=== PATIENT | female | born 1970 | race Caucasian/White ===

== ENCOUNTER 2021-11-27 09:11 | Outpatient (CLI) | payer OTHER, SELFPAY ==
--- NOTE | 2021-11-27 11:21 | W.ANESCHARGE ---
Anesthesia Charges Start Date/Time Anesthesia Start Date: 11/27/21 Anesthesia Start Time: 09:50 Stop Date/Time Anesthesia Stop Date: 11/27/21 Anesthesia Stop Time: 10:20 Summary Emergency: No
--- NOTE | 2021-11-27 11:58 | W.ANESCHARGE ---
Anesthesia Charges Start Date/Time Anesthesia Start Date: 11/27/21 Anesthesia Start Time: 09:50 Stop Date/Time Anesthesia Stop Date: 11/27/21 Anesthesia Stop Time: 10:20 Summary Emergency: No
== END 2021-11-27 09:12 | disposition home or self-care (01) ==
PROVIDERS: PCP Physician Assistant Medical; Visit Provider Internal Medicine
DX: Z12.11 Encounter for screening for malignant neoplasm of colon (principal); K63.5 Polyp of colon; K57.30 Diverticulosis of large intestine without perforation or abscess without bleeding
CPT/HCPCS: 00811; 45380; 88305; J2704

== ENCOUNTER 2021-12-10 15:37 | Outpatient (CLI) | payer OTHER, SELFPAY ==
--- NOTE | 2021-12-10 15:40 | CRLHL7_ITS ---
For Patients: As a result of the Century Cures Act, medical imaging exams and procedure reports are released immediately into your electronic medical record. You may view this report before your referring provider. If you have questions, please contact your health care provider. BILATERAL SCREENING MAMMOGRAM WITH COMPUTER-AIDED DETECTION AND TOMOSYNTHESIS TECHNIQUE: CC and MLO views were obtained. These mammographic images have been obtained using full-field digital technique. These mammographic images were interpreted with the benefit of computer-aided detection. Breast Tomosynthesis was used in this interpretation. COMPARISON FILM: 08/19/20, 11/07/17, 08/20/16. FINDINGS: There are scattered areas of fibroglandular density IMPRESSION: There is no radiographic evidence for malignancy. ASSESSMENT: BI-RADS Category 1: Negative RECOMMENDATION: Routine screening mammogram in 1 year. A lay language report of this examination will be provided to the patient. Khoa Franco M.D. Diagnostic Radiologist [email or web address] VERNA/Dictated by: Khoa Franco MD @ 12/11/2021 9:05:00 AM (Electronically Signed)
--- NOTE | 2021-12-10 16:00 | CRLHL7_ITS ---
For Patients: As a result of the Century Cures Act, medical imaging exams and procedure reports are released immediately into your electronic medical record. You may view this report before your referring provider. If you have questions, please contact your health care provider. INDICATION: Mobic fullness and bloating TECHNIQUE: Ultrasound pelvis transabdominal and transvaginal for better assessment or to better visualize the endometrium. Real time sonographic images with Spectral and color Doppler imaging of the ovaries were obtained. COMPARISON: None FINDINGS: Uterus: History of hysterectomy. Right ovary: 1.6 centimeter x 0.8 centimeter x 1.4 centimeter. No ovarian or adnexal masses. Normal arterial and venous blood flow. Left ovary: Not visualized. Cul-de-sac: No significant free fluid. IMPRESSION: History of hysterectomy. Normal right ovary. The left ovary is not visualized. Dictated by Khoa Campoverde MD @ 12/10/2021 7:13:38 PM (Electronically Signed)
== END 2021-12-10 15:38 | disposition home or self-care (01) ==
LOC: MAMMO 15:37
PROVIDERS: PCP Physician Assistant Medical; Visit Provider Physician Assistant Medical
DX: Z12.31 Encounter for screening mammogram for malignant neoplasm of breast (principal); R14.0 Abdominal distension (gaseous)
CPT/HCPCS: 76830; 76856; 77063; 77067

== ENCOUNTER 2022-01-27 17:05 | Outpatient (CLI) | payer OTHER, SELFPAY ==
[2022-01-27 22:28] LABS: NT Pro B Type NatriureticPept* 63 PG/mL (0-125)
== END 2022-01-27 17:06 | disposition home or self-care (01) ==
LOC: LKVREF 17:06
PROVIDERS: PCP Physician Assistant Medical; Visit Provider Physician Assistant Medical
DX: R00.2 Palpitations (principal)
CPT/HCPCS: 83880

== ENCOUNTER 2022-01-28 16:59 | Outpatient (CLI) | payer OTHER, SELFPAY ==
[2022-01-28 15:26] LABS: Magnesium* 1.9 mg/dL (1.5-2.6)
[2022-01-31 14:51] LABS: Estradiol by TMS 369.4 pg/mL
[2022-02-03 07:28] LABS: Sex Hormone Binding Globulin 71 nmol/L (25-122); Testosterone Bioavailable 13.4 ng/dL (2.8-16.5); Testosterone, Free LC-MS/MS 4.8 pg/mL (1.1-5.8); Testosterone, LC-MS/MS 47 ng/dL (9-55)
== END 2022-01-28 17:00 | disposition home or self-care (01) ==
PROVIDERS: PCP Physician Assistant Medical; Visit Provider Physician Assistant Medical
DX: R00.2 Palpitations (principal); E66.9 Obesity, unspecified; F41.9 Anxiety disorder, unspecified
CPT/HCPCS: 82533; 82670; 83001; 83735; 84144; 84270; 84402; 84403; 84443

== ENCOUNTER 2022-06-23 14:55 | Outpatient (CLI) | payer OTHER, SELFPAY | END 2022-06-23 14:56 | disposition home or self-care (01) | PROVIDERS: PCP Physician Assistant Medical; Visit Provider Student in an Organized Health Care Education/Training Program | DX: R19.7 Diarrhea, unspecified (principal) | CPT/HCPCS: 80076; 83690; 87505 ==

== ENCOUNTER 2022-08-18 16:11 | Outpatient (CLI) | payer OTHER, SELFPAY | END 2022-08-18 16:12 | disposition home or self-care (01) | LOC: NFLDREF 16:12 | PROVIDERS: PCP Physician Assistant Medical; Visit Provider Physician Assistant Medical | DX: A04.72 Enterocolitis due to Clostridium difficile, not specified as recurrent (principal) | CPT/HCPCS: 87338; 87493 ==

== ENCOUNTER 2022-12-31 08:09 | Outpatient (CLI) | payer OTHER, SELFPAY | END 2022-12-31 08:10 | disposition home or self-care (01) | LOC: NFLDREF 01-04 23:07 | PROVIDERS: PCP Physician Assistant Medical; Referring Provider Physician Assistant Medical; Visit Provider Physician Assistant Medical | DX: Z00.00 Encounter for general adult medical examination without abnormal findings (principal); R53.83 Other fatigue; E66.9 Obesity, unspecified; Z13.6 Encounter for screening for cardiovascular disorders; Z13.29 Encounter for screening for other suspected endocrine disorder | CPT/HCPCS: 80053; 80061; 84443 ==

== ENCOUNTER 2023-01-03 09:05 | Outpatient (CLI) | payer OTHER, SELFPAY | END 2023-01-03 09:06 | disposition home or self-care (01) | PROVIDERS: PCP Physician Assistant Medical; Visit Provider Physician Assistant Medical | DX: Z00.00 Encounter for general adult medical examination without abnormal findings (principal); R53.83 Other fatigue; E66.9 Obesity, unspecified | CPT/HCPCS: 82306; 85651; 86140; 86618 ==

== ENCOUNTER 2023-04-11 08:10 | Outpatient (CLI) | payer OTHER, SELFPAY ==
--- NOTE | 2023-04-11 08:15 | MM_ITS ---
Patient: LAURE VOGEL Facility:?[facility] Patient ID:?[id number] Site Patient ID:?[id number]. Site :?1970 Study:?XRay-Breast Bilateral 3D W/CAD-04/11/2023 8:34:28 AM Ordering Physician:Billy Final Report: BILATERAL SCREENING MAMMOGRAM WITH COMPUTER-AIDED DETECTION AND TOMOSYNTHESIS TECHNIQUE: CC and MLO views were obtained. These mammographic images have been obtained using full-field digital technique. These mammographic images were interpreted with the benefit of computer-aided detection. Breast Tomosynthesis was used in this interpretation. COMPARISON FILM: 12/10/21, 08/19/20, 11/07/17. FINDINGS: There are scattered areas of fibroglandular density. IMPRESSION: There is no radiographic evidence for malignancy. ASSESSMENT: BI-RADS Category 2: Benign RECOMMENDATION: Routine screening mammogram in 1 year. A lay language report of this examination will be provided to the patient. Jorge L Bravo M.D. Diagnostic/Nuclear Medicine Radiologist [email or web address] LUCIAN/ed R& Transcribed: 1:41 pm SP/Dictated by: Jorge L Bravo MD @ 04/14/2023 10:44:00 AM Signed by:Michael Bravo MD @04/14/2023 1:48:03 PM (Electronic Signature)
== END 2023-04-11 08:11 | disposition home or self-care (01) ==
LOC: MAMMO 08:11
PROVIDERS: PCP Physician Assistant Medical; Visit Provider Physician Assistant Medical
DX: Z12.31 Encounter for screening mammogram for malignant neoplasm of breast (principal)
CPT/HCPCS: 77063; 77067

== ENCOUNTER 2023-12-02 08:18 | Outpatient (CLI) | payer OTHER, SELFPAY | END 2023-12-02 08:19 | disposition home or self-care (01) | PROVIDERS: PCP Physician Assistant Medical; Referring Provider Physician Assistant Medical; Visit Provider Physician Assistant Medical | DX: E78.5 Hyperlipidemia, unspecified (principal); Z13.29 Encounter for screening for other suspected endocrine disorder | CPT/HCPCS: 80053; 80061; 84443 ==

== ENCOUNTER 2023-12-19 10:30 | Outpatient (CLI) | payer OTHER, SELFPAY ==
--- NOTE | 2023-12-19 10:45 | CRLHL7_ITS ---
For Patients: As a result of the Century Cures Act, medical imaging exams and procedure reports are released immediately into your electronic medical record. You may view this report before your referring provider. If you have questions, please contact your health care provider. CLINICAL HISTORY: Urinary incontinence TECHNIQUE: 2D fall scale and color Doppler images were acquired of the pelvis using a transvaginal approach. FINDINGS: The uterus is absent. The ovaries are not visualized. There are no suspicious fluid collections within the cul-de-sac. IMPRESSION: Status post hysterectomy. Nonvisualization of the ovaries. Dictated by Khoa Franco MD @ 12/19/2023 12:28:43 PM (Electronically Signed)
--- NOTE | 2023-12-19 11:30 | CRLHL7_ITS ---
For Patients: As a result of the Century Cures Act, medical imaging exams and procedure reports are released immediately into your electronic medical record. You may view this report before your referring provider. If you have questions, please contact your health care provider. CLINICAL HISTORY: urinary incontinence COMPARISON: none TECHNIQUE: Bowens scale and color Doppler images were acquired of the kidneys and urinary bladder. FINDINGS: Sonographic images reveal a symmetric appearance of the kidneys. There is no evidence of hydronephrosis, mass or calculus. The right kidney measures 9.5cm in length and the left kidney measures 10.6cm in length. The renal cortex appears of normal thickness. Prevoid bladder volume 91 cc. Postvoid bladder volume 20 cc. Bladder wall measures 4 millimeters. Color Doppler images reveal a normal appearance of both ureteral jets. There is no evidence of bladder calculi or diverticula. IMPRESSION: Normal renal ultrasound. Mild postvoid residual bladder volume. Mild bladder wall thickening. Dictated by Khoa Franco MD @ 12/19/2023 12:24:16 PM (Electronically Signed)
== END 2023-12-19 10:31 | disposition home or self-care (01) ==
LOC: US 10:30
PROVIDERS: PCP Physician Assistant Medical; Visit Provider Physician Assistant Medical
DX: R32 Unspecified urinary incontinence (principal)
CPT/HCPCS: 76770; 76830

== ENCOUNTER 2024-07-09 12:08 | Emergency (ER) | payer OTHER, SELFPAY ==
--- OUTSIDE RECORDS SUMMARY | 2024-07-09 12:11 | XMS_ITS | Clinical Summary ---
Author Organization [facility] Address [address] [place] [address] Care Team Providers Care Otr Company Driver Name Role Phone Unassigned, Provider Primary Care Provider Unava ilable Source Comments You are receiving this document as you are listed as the primary care provider,follow-up provider, or the patient has been referred to you for consultation.This is in compliance with the Medicare and[facility] Cent[facility] EHR Incentive Program,which states Providers who transition their patient to another setting of careor provider of care or refers their patient to another provider of care shouldprovide summary care record for each transition of care or referral. [facility] Allergies Active Allergy Reactions Criticality Noted Date Comments Cefdinir Rash 03/25/2022 Medications metoprolol tartrate (LOPRESSOR) 25 MG tablet Take 1 Tablet (25 mg) by mouth two times a day. Active fluticasone propionate (FLONASE) 50 MCG/ACT nasal solutionIndicat ions:Dizziness, Facial pressure Place 2 Sprays into both nostrils daily. 16 g 11 05/13/2021 Active azelastine (ASTELIN) 0.1 % nasal solutionIndicat ions:Dizziness, Facial pressure Place 1 [place] into both nostrils two times a day. 30 mL 11 05/13/2021 Active Active Problems No known active problems Encounters Date Type Department Care Team Description 07/07/2024 conrado Lozoya [address] [place] [address] from Last 3 Months Social History Tobacco Use Types Packs/Day Years Used Date Smoking Tobacco: Former Cigarettes Q uit: 2017 Comments No Sex and Gender Information Value Date Recorded Sex Assigned at Not on file Legal Sex Female 4:48 AM CDT Gender Identity Not on file Sexual Orientation Not on file Last Filed Vital Signs Vital Sign Reading Time Taken Comments Blood Pressure 121/75 03/25/2022 8:13 AM CONTENT PUBLISHER Pulse 75 03/25/2022 8:13 AM CONTENT PUBLISHER Temperature 36.9 C (98.5 F) 03/25/2022 8:13 AM CONTENT PUBLISHER Respiratory Rate 16 03/25/2022 8:13 AM CONTENT PUBLISHER Oxygen Saturation 99% 03/25/2022 8:13 AM CONTENT PUBLISHER Inhaled Oxygen Concentration - - Weight - - Height - - Body Mass Index - - Plan of Treatment Upcoming Encounters Date Type Department Care Team (Late st Contact Info) Description 01/22/2025 1:30 PM CONTENT PUBLISHER Appointment [facility] [address] [place] [address] Demar Chadwick MD [address] [place] [address] Health Maintenance Due Date Last Done Comments Cervical Cancer Screening Due 1972 Colon Cancer Screening Plan Due 1972 Hep C Screening (Preventive Services) 1972 Mammogram 1972 HIV Screening (Preventive Services) 1988 Adult Preventive Visit 1990 HepB Vaccine (1) 11/09/1991 Cholesterol 2017 Pneumococcal Vaccine 50+ Yrs (1 of 1 - PCV) 2022 Zoster/Shingles Vaccine (1 of 2) 2022 COVID-19 Vaccine (3 - season) 2023 07/04/2020, 06/10/2020 Influenza Vaccine (Season Ended) 2024 01/09/2020, 12/15/2016, 01/20/2016, Additional history exists DTaP/Tdap/Td Vaccine (2 - Tdap) 10/28/2027 10/27/2017, 01/08/2003 HepA Vaccine Aged Out No longer eligi ble based on patient's age to complete this topic Hib Vaccine Aged Out No longer eligi ble based on patient's age to complete this topic IPV (Polio) Vaccine Aged Out No longe r eligible based on patient's age to complete this topic MCV4 Vaccine Aged Out No longer eligi ble based on patient's age to complete this topic Meningococcal B Vaccine Aged Out No l onger eligible based on patient's age to complete this topic Insurance [facility] Care Teams Otr Company Driver Relationship Specialty Start Date End Date Unassigned, Provider [address] [place] [address] PCP - General 01/25/00
--- OUTSIDE RECORDS SUMMARY | 2024-07-09 12:11 | XMS_ITS | Clinical Summary ---
Author Organization [facility] Address [address] [place] [address] Care Team Providers Care Water Plant Pump Operator Supervisor Name Role Phone Ip, Andrew Archer MD Unavailable [phone] Moni Allen MD Unavailable + Rosangela Troy PA-C Primary Care Provider Allergies Active Allergy Reactions Criticality Noted Date Comments Cefdinir Rash Low 01/25/2022 Medications acetaminophen (TYLENOL) 500 MG tablet Active ibuprofen (ADVIL/MOTRIN) 200 MG tablet Active metoprolol tartrate (LOPRESSOR) 25 MG tablet Take 12.5 mg by mouth daily Active flecainide (TAMBOCOR) 50 MG tabletIndicatio ns:Palpitations Take 1 tablet (50 mg) by mouth 2 times daily 60 tablet 3 Active Additional Information Patient not taking.Reported on 04/06/2022 Family History Medical History Relation Comments Hypertension Brother Coronary Stenting Father Heart Failure Father Myocardial Infarction Father Relation Status Comments Brother Father Social History Tobacco Use Types Packs/Day Years Used Date Smoking Tobacco: Former Cigarettes 1.5 30 0 06/21/1986 - 06/21/2016 Smokeless Tobacco: Never Tobacco Cessation:Counseling Given: Not Answered Alcohol Use Standard Drinks/Week Comments Yes 0 (1 standard drink = 0.6 oz pur e alcohol) Socially Adolescent Education Answer Date Record ed Getting School Help Needed Not on file 12/07 Comments Unknown Sex and Gender Information Value Date Recorded Sex Assigned at Not on file Legal Sex Female 4:25 AM DITCHER OPERATOR Gender Identity Not on file Sexual Orientation Not on file Last Filed Vital Signs Vital Sign Reading Time Taken Comments Blood Pressure 130/90 04/06/2022 3:15 PM DITCHER OPERATOR Pulse 89 04/06/2022 3:15 PM DITCHER OPERATOR Temperature - - Respiratory Rate - - Oxygen Saturation 99% 04/06/2022 3:15 PM DITCHER OPERATOR Inhaled Oxygen Concentration - - Weight 95.3 kg (210 lb) 04/06/2022 3:15 PM DITCHER OPERATOR Height 162.6 cm (5' 4) 04/06/2022 3:15 PM DITCHER OPERATOR Body Mass Index 36.05 04/06/2022 3:15 PM DITCHER OPERATOR Plan of Treatment Health Maintenance Due Date Last Done Comments ADVANCE CARE PLANNING 1972 ANNUAL REVIEW OF HM ORDERS 1972 CT COLONOGRAPHY 1972 DIABETES SCREENING 1972 FIT 1972 FLEX SIG 1972 MAMMO SCREENING 1972 sDNA (Cologuard) 1972 YEARLY PREVENTIVE VISIT 11/09/1975 COLONOSCOPY 1982 COLORECTAL CANCER SCREENING 1982 HIV SCREENING 11/09/1987 HEPATITIS C SCREENING 1990 HEPATITIS B IMMUNIZATION (1 of 3 - 19+ 3-dose series) 11/09/1991 PAP 1993 LIPID 2012 LUNG CANCER SCREENING 2022 Pneumococcal Vaccine: 50+ Years (1 of 1 - PCV) 2022 ZOSTER IMMUNIZATION (1 of 2) 2022 COVID-19 Vaccine (3 - season) 2023 07/04/2020, 06/10/2020 PHQ-2 (once per calendar year) 2024 INFLUENZA VACCINE (Season Ended) 2024 01/09/2020, 12/15/2016, 01/20/2016, Additional history exists DTAP/TDAP/TD IMMUNIZATION (2 - Td or Tdap) 10/28/2027 10/27/2017, 01/08/2003 HPV IMMUNIZATION Aged Out No longer e ligible based on patient's age to complete this topic MENINGITIS IMMUNIZATION Aged Out No l onger eligible based on patient's age to complete this topic Insurance [employer] [address] [place] [id number] [employer] Care Teams Water Plant Pump Operator Supervisor Relationship Specialty Start Date End Date Rosangela Troy PA-C [facility] [address] [place] [address] PCP - General Physician Concrete Saw Operator 04/06/22 Andrew Luu MD [address] [place] [address] Cardiovascular Disease 01/21/22 Moni Allen MD [address] [place] [address] Cardiovascular Disease 02/25/22
--- OUTSIDE RECORDS SUMMARY | 2024-07-09 12:11 | XMS_ITS | Encounter Summary ---
Author Organization [facility] Address [address] [place] [address] Care Team Providers Care Travel Specialist Name Role Phone Unassigned, Provider Primary Care Provider Unava ilable Encounter Details Date Type Department Care Team (Late st Contact Info) Description 07/07/2024 Fabiana [address] [place] [address] Social History Tobacco Use Types Packs/Day Years Used Date Smoking Tobacco: Former Cigarettes Q uit: 2017 Comments No Sex and Gender Information Value Date Recorded Sex Assigned at Not on file Legal Sex Female 4:48 AM CDT Gender Identity Not on file Sexual Orientation Not on file documented as of this encounter Progress Notes * FAMILY MEDICINEWOOD PROVIDER - 07/07/2024 9:54 AM CDT [facility] Treatment Plan Diagnosis Urinary Tract Infection Visit Date July 07, 2024 Marcelina Hernandez Date of : 74 Provider Barb Wallace, Nurse Practitioner Note From Provider Conrad Hewitt, thank you for choosing [facility]! I?? sorry to hear that you're having symptoms of a bladder infection.'ve sent a prescription for an antibiotic to your pharmacy. Take the medication with a full meal twice a day and remember to drink lots of fluids. We are here for you for any questions or concerns along the way, just submit a Follow Up Request. Feel better soon! NICOLE Day Treatment Plan Because you have a bacterial infection, I sent a prescription for an antibiotic to [id number]. I also listed a few ways to soothe your discomfort and additional self-care tips to get you on the road to feeling better. If your symptoms don't start to improve after 3 days, or if you have questions, please select Help to Request a Follow-up and we'll discuss next steps. Order(s) nitrofurantoin monohyd/m-cryst 100 mg capsule Take 1 capsule by mouth every twelve hours as directed for 5 days Note: Take with food to improve absorption. Refills: None Sent To: [facility] [address] [place] [address] Treatment Plan Self Care Tip Topics Drink Water Avoid Caffeine Warm Packs What to Expect If you follow the recommendations I made on the Treatment tab, your symptoms should start to improve in about 3 days. If your symptoms don't start to improve after 3 days, or if you have questions, please select Help to Request a Follow- up and we'll help determine next steps. What to Watch Out For Follow-up in clinic if you experience: ??? Fever higher than 99.9 degrees ??? Shaking or chills ??? Vomiting ??? Severe pain in your back, abdomen or pelvis ??? Extreme fatigue My Conditions, Orders, Allergies as of July 07, 2024 Standard condition list Heart palpitations Current orders nitrofurantoin monohyd/m-cryst (nitrofurantoin monohyd/m-cryst) metoprolol tartrate (metoprolol tartrate) Allergies cefdinir (cefdinir), oral [employer] Education Information [facility] We are an online clinic open 13/09. If you have any questions or comments about this visit, please call or email [email or web address] documented in this encounter Plan of Treatment Upcoming Encounters Date Type Department Care Team (Late st Contact Info) Description 01/22/2025 1:30 PM VECTOR CONTROL ASSISTANT Appointment [facility] [address] [place] [address] Demar Chdawick MD [facility] [place] [address] documented as of this encounter Visit Diagnoses Diagnosis Urinary tract infection, site not specified documented in this encounter Care Teams Travel Specialist Relationship Specialty Start Date End Date Unassigned, Provider [address] [place] [address] PCP - General 01/25/00 documented as of this encounter
--- OUTSIDE RECORDS SUMMARY | 2024-07-09 12:11 | XMS_ITS | Clinical Summary ---
Author Organization [facility] Address [address] [place] [address] Care Team Providers Care Office Lead Name Role Phone Rosangela Troy PA-C Primary Care Provider Allergies No known active allergies Medications ADVIL 200 MG TAB take 1 tablet (200 mg) by oral route every 6 hours as needed with food 0 0 Active TYLENOL EXTRA STRENGTH 500 MG TAB take 2 tablets (1,000 mg) by oral route every 6 hours as needed 0 0 Active metoprolol (LOPRESSOR) 25 mg tablet TAKE 1/2 TABLET TWICE DAILY 45 tablet 0 02/20/2011 Active metoprolol (LOPRESSOR) 25 mg tablet TAKE 1/2 TABLET TWICE DAILY 45 tablet 0 02/20/2011 Active Active Problems Problem Noted Date Diagnosed Date Palpitations Tobacco use disorder Shortness of breath Lightheadedness Chest discomfort Family history of ischemic heart disease Immunizations Immunization Administration Dates Next Due Influenza, IIV3 (Age >=3 years) 1972 Td (Age >=7 Years) 01/08/2003 01/08/2003 Family History Medical History Relation Name Comments Hypertension Brother Heart Disease Father CABG, HTN, hyp erlipidemia Stroke Maternal Aunt Cancer-colon Maternal Grandfather Skin CA also Arthritis Maternal Grandmother Diabetes Mother hyperlipidemia also Heart Disease Paternal Grandfather Thyroid Disease Sister Relation Name Status Comments Brother Father Maternal Aunt Maternal Grandfather Maternal Grandmother Mother Paternal Grandfather Sister Social History Tobacco Use Types Packs/Day Years Used Date Smoking Tobacco: Every Day Cigarettes 0.5 20 Smokeless Tobacco: Never Alcohol Use Standard Drinks/Week Comments Yes 0 (1 standard drink = 0.6 oz pur e alcohol) Occasional Social Connections Answer Date Recorded Frequency of Communication with Friends and Fami ly Not on file 04/17/2021 Financial Resource Strain Answer Date R ecorded Difficulty of Paying Living Expenses Not on file 04/17/2021 Difficulty of Paying Living Expenses Not on file 04/17/2021 Comments No Sex and Gender Information Value Date Recorded Sex Assigned at Not on file Legal Sex Female 7:36 AM STUMPER FELLER Gender Identity Not on file Sexual Orientation Not on file Obstetrics History Last Filed Vital Signs Vital Sign Reading Time Taken Comments Blood Pressure 98/72 02/02/2011 2:05 PM STUMPER FELLER Pulse 78 02/02/2011 2:05 PM STUMPER FELLER Temperature 37.2 C (99 F) 11/25/2010 3:15 PM CDT Respiratory Rate - - Oxygen Saturation - - Inhaled Oxygen Concentration - - Weight 79.4 kg (175 lb 1.6 oz) 02/02/2011 2:05 P M STUMPER FELLER Height 161.9 cm (5' 3.75) 02/02/2011 2:05 PM CS T Body Mass Index 30.29 02/02/2011 2:05 PM STUMPER FELLER Plan of Treatment Health Maintenance Due Date Last Done Comments Tdap 11/09/1983 Depression screening for age 12+ 1984 HIV for age 15-65 11/09/1987 BMI (ht and wt on same day) for age 18+ 1990 Hepatitis C screening for age 18-79 1990 Pap test for age 21-65 1993 Tetanus booster 01/08/2013 01/08/2003 Colonoscopy through age 75 2017 Lipids for age 45-75 2017 Mammogram for age 45-75 2017 Pneumococcal series for age 50+ (1 of 1 - PCV) 2022 Zoster (shingles) series for age 50+ (1 of 2) 2022 COVID-19 vaccine series (3 - season) 2023 07/04/2020, 06/10/2020 Influenza Vaccine (Season Ended) 2024 11/08/18 75 Insurance [employer] [place] [id number] Care Teams Office Lead Relationship Specialty Start Date End Date Rosangela Troy PA-C [address] [place], [place] [id number] PCP - General Emergency Medicine 04/09/21
--- NOTE | 2024-07-09 12:24 | ED_ITS ---
HPI - General Adult General Time Seen by Provider: 12:24 Date Seen: 07/09/24 Chief complaint: Abdominal Pain Stated complaint: abdominal pain for a few days Time Seen by Provider: 07/09/24 12:24 Source: patient and RN notes reviewed Mode of arrival: ambulatory Limitations: no limitations History of Present Illness HPI narrative: Marcelina is a very pleasant 53-year-old female with a history of hysterectomy, palpations anxiety and diverticulosis who comes to the emergency room with left lower quadrant pain. Patient notes that on July 05 she started expe riencing pain in her left lateral abdomen that she usually associates with constipation. Chronically she has been using MiraLax on Mondays and Fridays because of constipation but recently she has had to take care of her mom and was not doing that. She notes that she did use MiraLax that day but did not have a bowel movement. That evening the pain began to descend into her left lower quadrant. On Tuesday morning the she still had not had a bowel movement and thus did take more MiraLax. She started noticing that it would hurt if she would move or stretch that area of her abdomen. On TuesdayJuly 07 she started having increased urination and increased pain in the left lower quadrant and did a virtual visit at which time she was prescribed Macrobid for possible UTI. She notes that that evening she did not sleep well felt very bloated. She does think she is passing gas but continues to have increased pain especially with movement. She notes that today seems to be a little bit better. She has had no fever or vomiting but has had some nausea and chills. Today she has actually had some diarrhea presumably secondary to the MiraLax use. Related Data Home Medications ?Medication ?Instructions ?Recorded ?Confirmed nitrofurantoin 1 cap PO Q12H 07/09/24 07/09/24 monohydrate/macrocrystals 100 mg capsule Previous Rx's ?Medication ?Instructions ?Recorded metoprolol tartrate 25 mg tablet 12.5 - 25 mg (0.5 - 1 x 25 mg) PO 12/08/23 BID #180 tabs alprazolam 0.5 mg tablet See Rx Instructions PO .ud PRN 03/28/24 anxiety #20 tabs alprazolam 0.25 mg tablet 0.25 mg PO TID PRN anxiety #30 tabs 04/25/24 Allergies Allergy/AdvReac Type Severity Reaction Status Date / Time cefdinir Allergy Mild Rash Verified 07/09/24 13:59 Review of Systems Status of ROS: Reports: 6 or more systems reviewed and unremarkable except as noted in History and below Const: Reports: chills and fatigue; Denies: fever ENMT: Denies: nasal congestion Cardio: Denies: chest pain, palpitations, swelling of feet/ankles or shortness of breath with exertion Resp: Denies: shortness of breath or cough GI: Reports: abdominal pain, nausea and diarrhea; Denies: vomiting : Reports: painful urination and urinary frequency Musculo: Denies: back pain Endo: Reports: fatigue PFSH PFSH Medical History C. difficile colitis ?A04.72 - Enterocolitis due to Clostridium difficile, not specified as recurrent (ICD-10) H. pylori infection ?A04.8 - Other specified bacterial intestinal infections (ICD-10) Surgical History History of total hysterectomy ?Z90.710 - Acquired absence of both cervix and uterus (ICD-10) Family History Mother Diabetes Father Heart disease Other Family history of thyroid disorder Social History Narrative: Former smoker ( Quit 2017) alcohol: rare- occasional ( 6 drinks per month) . one adult daughter Book Keeper Smoking Status: Former smoker Exam Narrative: Exam Narrative: Alert and oriented. Very pleasant woman. No significant acute distress. External ears eyes nose clear. Lips are dry. Heart with regular rate and r hythm and lungs are clear. Abdomen shows tenderness in the left lower quadrant. Bowel sounds are decreased. Lower extremities without significant edema. Patient demonstrates increased pain with twisting or stretching of the lower abdominal musculature. Const: Vital Signs, click to edit/add: Vital Signs - 24 hr 07/09/24 12:28 Temperature 98.5 F Pulse Rate [Pulse Oximeter] 77 Respiratory Rate 18 Blood Pressure [Ri ght Upper Arm] 121/85 Pulse Oximetry 97 Oxygen Delivery Me thod Room Air Documenting provider has reviewed patient's vital signs: yes Course Course ED Course: Differential diagnosis includes but is not limited to diverticulitis, colitis, constipation, ovarian cyst, UTI. IV will be placed, urinalysis collected. Will also check CBC, basic panel, CRP. Will go ahead and order CT of the abdomen and pelvis with contrast. If negative will follow-up with ultrasound of the left ovary. History does not fit ovarian torsion but certainly considered in the differential diagnosis. Vital Signs Vital signs: Initial Vital Signs Temperature 98.5 F 07/09/24 12:28 Temperature Source Temporal Artery Scan 07/09/24 12:28 Pulse Rate 77 07/09/24 12:28 Pulse Rhythm Regular 07/09/24 12:28 Respiratory Rate 18 07/09/24 12:28 Blood Pressure 121/85 07/09/24 12:28 Blood Pressure Mean 97 07/09/24 12:28 Blood Pressure Position Sitting 07/09/24 12:28 Pulse Oximetry 97 07/09/24 12:28 Oxygen Delivery Method Room Air 07/09/24 12:28 Vital Signs Temperature 98.5 F 07/09/24 12:28 Pulse Rate 77 07/09/24 12:28 Respiratory Rate 18 07/09/24 12:28 Blood Pressure 121/85 07/09/24 12:28 Pulse Oximetry 97 07/09/24 12:28 Oxygen Delivery Method Room Air 07/09/24 12:28 Temperature 98.5 F 07/09/24 12:28 Pulse Rate 77 07/09/24 12:28 Respiratory Rate 18 07/09/24 12:28 Blood Pressure 121/85 07/09/24 12:28 Pulse Oximetry 97 07/09/24 12:28 Oxygen Delivery Method Room Air 07/09/24 12:28 Medications Administered Medications: Discontinued Medications Generic Name Dose Route Start Last Admin Trade Name Freq PRN Reason Stop Dose Admin Sodium Chloride 1,000 mls @ 1,000 mls/hr 07/09/24 12:51 07/09/24 14:15 0.9 % Sodium Chloride 1000 Ml IV 07/09/24 13:50 Infused .Q1H JASMIN Infusion Medical Decision Making MDM Narrative Medical decision making narrative: 1. Diverticulitis-CT confirmed diverticulitis on complicated. White count normal but CRP elevated to 13.2. Recommend Augmentin 875 p.o. b.i.d. x7 days. Recommend follow-up with primary MD for recheck and possible scheduling of colonoscopy in the near future. Suggest ibuprofen as needed for discomfort. Will give a small amount of Errol 5/325 1-2 tabs p.o. q.6 hours p.r.n. pain 12. With no refills. Both medications from our [employer] meds machine. Cautions regarding use of Errol and side effects of sedation and constipation were discussed with patient. 2. Disposition-home at this time. Return to the ED for fever, vomiting, worsening symptoms and as needed. I other laboratory values including electrolyte panel kidney function within normal limits. Medical Records Medical records reviewed: Yes I reviewed the patient's medical records Lab Data Lab results reviewed: Yes I reviewed the patient's lab results Labs: Lab Results 07/09/24 Range/Units 13:05 WBC 8.04 (4.50-11.00) K/uL RBC 5.21 H (4.00-5.20) m/uL Hgb 15.3 (12.0-16.0) gm/dL Hct 48.4 (33.0-51.0) % MCV 93 (80-100) fL MCH 29 (26-34) pg MCHC 32 (32-36) gm/dL RDW Coeff of Leona 12.4 (11.5-15.5) % Plt Count 320 (140-440) K/uL Neut % (Auto) 67.0 (42.0-72.0) % Lymph % (Auto) 25.7 (20-44) % Brown % (Auto) 6.0 (0.0-11.0) % Eos % (Auto) 0.7 (0.0-7.0) % Baso % (Auto) 0.5 (0.0-3.0) % Neut # (Auto) 5.38 (1.7-7.0) K/uL Lymph # (Auto) 2.07 (0.90-2.90) K/uL Brown # (Auto) 0.50 (0.00-0.90) K/UL Eos # (Auto) 0.06 (0.00-0.50) K/uL Baso # (Auto) 0.04 (0.00-0.30) K/uL Abs Immat Gran (auto) 0.01 (0.00-0.30) K/uL Imm/Tot Granulo (auto) 0.1 % Sodium 141 (135-149) mmol/L Potassium 4.1 (3.6-5.1) mmol/L Chloride 106 (96-114) mmol/L Carbon Dioxide 29 (20-32) mmol/L Anion Gap 6 L (7-15) mEq/L BUN 13 (7-30) mg/dL Creatinine 0.7 (0.5-1.5) mg/dL Estimated Creat Clear 82.10 Estimated GFR 105 ml/min Glucose 96 (60-115) mg/dL Calcium 9.3 (8.4-10.6) mg/dL C-Reactive Protein 13.2 H (0.5-1.0) mg/dL Imaging Data CT scan - abdomen: Attestation: I have reviewed the pertinent imaging results. My impression: By my read stranding noted around the distal sigmoid colon suggestive of diverticulitis. Radiologist's impression: Abdomen/pelvis: The liver, gallbladder and biliary system, spleen, pancreas, adrenal glands, kidneys, ureters, and bladder are unremarkable. Postsurgical changes of hysterectomy. No suspicious adnexal lesions. No evidence of bowel obstruction. The appendix is normal. Short-segment circumferential wall thickening of the sigmoid colon with a few inflamed diverticula and [id number] pericolonic fat stranding. No free air, free fluid, or abscess. No abdominopelvic lymphadenopathy. The vasculature is unremarkable. Soft tissue/musculoskeletal: Tiny fat containing umbilical hernia. The bones are unremarkable in appearance for the patient`s age. Impression: Acute, uncomplicated diverticulitis of the sigmoid colon. Discharge Plan Discharge Clinical Impression: Diverticulitis Patient Disposition: Home, Self-Care Condition: Unchanged Additional Instructions: Start Augmentin as soon as you get the tablets. Tablet before bedtime tonight. Take with food. You may use ibuprofen as needed for discomfort. For pain not relieved by ibuprofen suggests Errol which is a combination medicine of Tylenol and hydrocodone. No that this is a narcotic medicine so that it may cause constipation and he should not be using alcohol or any other sedating medication with it. In addition, advise against driving. Return to the ER for fever, vomiting, worsening symptoms and as needed. Otherw ise please follow-up with Dr. Mensah as you will likely need a colonoscopy once this is healed. Prescriptions: No Action metoprolol tartrate 25 mg tablet 12.5 - 25 mg PO BID Qty: 180 3RF Rx Instructions: take 1/2 tab -1 tab twice daily alprazolam 0.5 mg tablet See Rx Instructions PO .ud PRN (Reason: anxiety) Qty: 20 0RF Rx Instructions: 1-2 tabs tid prn orally UD PRN; alprazolam 0.25 mg tablet 0.25 mg PO TID PRN (Reason: anxiety) Qty: 30 0RF nitrofurantoin monohyd/m-cryst 100 mg capsule 1 cap PO Q12H Follow Up/Referrals: Rosangela Troy PA-C [Primary Care Provider] - Stand Alone Forms: MyHealth Info Instructions
[2024-07-09 12:28] VITALS: BP 121/85; PULSE 77; RESP 18; TEMP 36.9; O2SAT 97; BMI 35.3
--- NOTE | 2024-07-09 12:51 | CRLHL7_ITS ---
For Patients: As a result of the Century Cures Act, medical imaging exams and procedure reports are released immediately into your electronic medical record. You may view this report before your referring provider. If you have questions, please contact your health care provider. Indication: LLQ ABD PAIN X 4 DAYS. HX OF DIVERTICULOSIS Technique: CT abdomen/pelvis with IV contrast, 101 mL Isovue 370 Comparison: None Findings: Lower thorax: Unremarkable Abdomen/pelvis: The liver, gallbladder and biliary system, spleen, pancreas, adrenal glands, kidneys, ureters, and bladder are unremarkable. Postsurgical changes of hysterectomy. No suspicious adnexal lesions. No evidence of bowel obstruction. The appendix is normal. Short-segment circumferential wall thickening of the sigmoid colon with a few inflamed diverticula and dkec-vy-[id number] pericolonic fat stranding. No free air, free fluid, or abscess. No abdominopelvic lymphadenopathy. The vasculature is unremarkable. Soft tissue/musculoskeletal: Tiny fat containing umbilical hernia. The bones are unremarkable in appearance for the patient`s age. Impression: Acute, uncomplicated diverticulitis of the sigmoid colon. Please note that all CT scans at this facility use dose modulation, iterative reconstruction, and/or weight-based dosing when appropriate to reduce radiation dose to as low as reasonably achievable. Dictated by Kevin Moffett MD @ 07/09/2024 2:13:54 PM (Electronically Signed)
--- OUTSIDE RECORDS SUMMARY | 2024-07-09 13:01 | XMS_ITS | Encounter Summary ---
Author Organization [facility] Address [address] [place] [address] Care Team Providers Care Amusement Ride Operator Name Role Phone Unassigned, Provider Primary Care Provider Unava ilable Encounter Details Date Type Department Care Team (Late st Contact Info) Description 07/07/2024 Fabiana Hernandez[address] [place] [address] Social History Tobacco Use Types [...] sent a prescription for an antibiotic to [facility] [id number]. I also listed a few ways to [...] to improve absorption. Refills: None Sent To: [facility] [address] [address] [place] [address] Treatment Plan Self Care Tip Topics Drink [...] tartrate (metoprolol tartrate) Allergies cefdinir (cefdinir), oral HYLT Aviation Information [facility] We are an online clinic open 13/09. If you have any questions or comments about this visit, please call or email [email or web address] documented in this encounter Plan of Treatment Upcoming Encounters Date Type Department Care Team (Late st Contact Info) Description 01/22/2025 1:30 PM ANIMAL NUTRITION TEACHER Appointment [facility] [address] [place] [address] Demar Chadwick MD [facility] [place] [address] documented as of this encounter Visit Diagnoses Diagnosis Urinary tract infection, site not specified documented in this encounter Care Teams Amusement Ride Operator Relationship Specialty Start Date End Date Unassigned, Provider [address] [place] [address] PCP - General 01/25/00 documented as of this encounter
--- OUTSIDE RECORDS SUMMARY | 2024-07-09 13:01 | XMS_ITS | Clinical Summary ---
Author Organization [facility] Address [address] [place] [address] Care Team Providers Care Corporate Responsibility Officer Name Role Phone Unassigned, Provider Primary Care Provider Unava ilable Source Comments You are receiving this document as you are listed as the primary care provider,follow-up provider, or the patient has been referred to you for consultation.This is in compliance with the Medicare and[facility] EHR Incentive Program,which states Providers who transition their patient to another setting of careor provider of care or refers their patient to another provider of care shouldprovide summary care record for each transition of care or referral. [facility] Allergies Active Allergy Reactions Criticality Noted Date Comments Cefdinir Rash 03/25/2022 Medications metoprolol tartrate (LOPRESSOR) 25 MG tablet Take 1 Tablet (25 mg) by mouth two times a day. Active fluticasone propionate (FLONASE) 50 MCG/ACT nasal solutionIndicat ions:Dizziness, Facial pressure Place 2 Sprays into both nostrils daily. 16 g 11 05/13/2021 Active azelastine (ASTELIN) 0.1 % nasal solutionIndicat ions:Dizziness, Facial pressure Place 1 [place]ott into both nostrils two times a day. 30 mL 11 05/13/2021 Active Active Problems No known active problems Encounters Date Type Department Care Team Description 07/07/2024 conrado Lozoya [address] [place] [address] from Last 3 Months Social [...] Comments Blood Pressure 121/75 03/25/2022 8:13 AM DIRECTOR SECURITY MANAGEMENT Pulse 75 03/25/2022 8:13 AM DIRECTOR SECURITY MANAGEMENT Temperature 36.9 C (98.5 F) 03/25/2022 8:13 AM DIRECTOR SECURITY MANAGEMENT Respiratory Rate 16 03/25/2022 8:13 AM DIRECTOR SECURITY MANAGEMENT Oxygen Saturation 99% 03/25/2022 8:13 AM DIRECTOR SECURITY MANAGEMENT Inhaled Oxygen Concentration - - Weight - - Height - - Body Mass Index - - Plan of Treatment Upcoming Encounters Date Type Department Care Team (Late st Contact Info) Description 01/22/2025 1:30 PM DIRECTOR SECURITY MANAGEMENT Appointment [facility] [address] [place] [address] Demar Chadwick MD [address] [place] [address] Health Maintenance Due Date Last [...] patient's age to complete this topic Insurance [facility] Care Teams Corporate Responsibility Officer Relationship Specialty Start Date End Date Unassigned, Provider [address] [place] [address] PCP - General 01/25/00
--- OUTSIDE RECORDS SUMMARY | 2024-07-09 13:02 | XMS_ITS | Clinical Summary ---
Author Organization [facility] Address [address] [place] [address] Care Team Providers Care Motor Vehicle Examiner Name Role Phone Rosangela Troy PA-C Primary Care Provider [phone] Allergies No known active allergies Medications ADVIL [...] on file Legal Sex Female 7:36 AM STAVE BLOCK SPLITTER Gender Identity Not on file Sexual Orientation Not on file Obstetrics History Last Filed Vital Signs Vital Sign Reading Time Taken Comments Blood Pressure 98/72 02/02/2011 2:05 PM STAVE BLOCK SPLITTER Pulse 78 02/02/2011 2:05 PM STAVE BLOCK SPLITTER Temperature 37.2 C (99 F) 11/25/2010 3:15 PM CDT Respiratory Rate - - Oxygen Saturation - - Inhaled Oxygen Concentration - - Weight 79.4 kg (175 lb 1.6 oz) 02/02/2011 2:05 P M STAVE BLOCK SPLITTER Height 161.9 cm (5' 3.75) 02/02/2011 2:05 PM CS T Body Mass Index 30.29 02/02/2011 2:05 PM STAVE BLOCK SPLITTER Plan of Treatment Health Maintenance Due Date [...] 11/08/18 75 Insurance [employer] [place] [id number] Care Teams Motor Vehicle Examiner Relationship Specialty Start Date End Date Rosangela Troy PA-C [address] [place], [place] [id number] PCP - General Emergency Medicine 04/09/21
--- OUTSIDE RECORDS SUMMARY | 2024-07-09 13:02 | XMS_ITS | Clinical Summary ---
Author Organization [facility] Address [address] [place] [address] Care Team Providers Care Library Information Technician Name Role Phone Ip, Andrew Archer MD Unavailable [phone] Moni Allen MD Unavailable + Rosangela Troy [...] on file Legal Sex Female 4:25 AM NON DESTRUCTIVE EVALUATION TECHNICIAN Gender Identity Not on file Sexual Orientation Not on file Last Filed Vital Signs Vital Sign Reading Time Taken Comments Blood Pressure 130/90 04/06/2022 3:15 PM NON DESTRUCTIVE EVALUATION TECHNICIAN Pulse 89 04/06/2022 3:15 PM NON DESTRUCTIVE EVALUATION TECHNICIAN Temperature - - Respiratory Rate - - Oxygen Saturation 99% 04/06/2022 3:15 PM NON DESTRUCTIVE EVALUATION TECHNICIAN Inhaled Oxygen Concentration - - Weight 95.3 kg (210 lb) 04/06/2022 3:15 PM NON DESTRUCTIVE EVALUATION TECHNICIAN Height 162.6 cm (5' 4) 04/06/2022 3:15 PM NON DESTRUCTIVE EVALUATION TECHNICIAN Body Mass Index 36.05 04/06/2022 3:15 PM NON DESTRUCTIVE EVALUATION TECHNICIAN Plan of Treatment Health Maintenance Due Date [...] topic Insurance [employer] [address] [place] [id number] [employer] Care Teams Library Information Technician Relationship Specialty Start Date End Date Rosangela Troy PA-C [facility] [address] [place] [address] PCP - General Physician Woods Warden 04/06/22 Andrew Luu MD [address] [place] [address] Cardiovascular Disease 01/21/22 Moni Allen MD [address] [place] [address] Cardiovascular Disease 02/25/22
[2024-07-09] MEDS: 0.9 % SODIUM CHLORIDE 1000 ml 1,000 ML IV (13:05)
[2024-07-09 13:13] LABS: Basophils Absolute Auto 0.04 K/uL (0.00-0.30); Basophils Percent Auto 0.5 % (0.0-3.0); Eosinophils Absolute Auto 0.06 K/uL (0.00-0.50); Eosinophils Percent Auto 0.7 % (0.0-7.0); Hematocrit 48.4 % (33.0-51.0); Hemoglobin* 15.3 gm/dL (12.0-16.0); Immature Granulocytes Abs Auto 0.01 K/uL (0.00-0.30); Immature Granulocytes Pct Auto 0.1 %; Lymphocytes Absolute Auto 2.07 K/uL (0.90-2.90); Lymphocytes Percent Auto 25.7 % (20-44); Mean Corpuscular HGB Conc 32 gm/dL (32-36); Mean Corpuscular Hemoglobin 29 pg (26-34); Mean Corpuscular Volume 93 fL (80-100); Neutrophils Absolute Auto 5.38 K/uL (1.7-7.0); Platelet Count* 320 K/uL (140-440); RDW Coefficient of Variation % 12.4 % (11.5-15.5); Red Blood Count 5.21 m/uL (4.00-5.20); White Blood Count* 8.04 K/uL (4.50-11.00)
[2024-07-09 13:28] LABS: Chloride* 106 mmol/L (96-114); Potassium* 4.1 mmol/L (3.6-5.1); Sodium* 141 mmol/L (135-149)
[2024-07-09 13:30] LABS: Slide Review Reflex No
[2024-07-09 13:31] LABS: Blood Urea Nitrogen* 13 mg/dL (7-30); Creatinine* 0.7 mg/dL (0.5-1.5); Estimated Glomerular Filt Rate 105 ml/min
[2024-07-09 13:32] LABS: Anion Gap 6 mEq/L (7-15); Calcium* 9.3 mg/dL (8.4-10.6); Carbon Dioxide* 29 mmol/L (20-32); Glucose* 96 mg/dL (60-115)
[2024-07-09 13:58] LABS: C Reactive Protein* 13.2 mg/dL (0.5-1.0)
== END 2024-07-09 14:37 | disposition home or self-care (01) ==
PROVIDERS: Emergency Provider Family Medicine; PCP Physician Assistant Medical
DX: K57.92 Diverticulitis of intestine, part unspecified, without perforation or abscess without bleeding (principal)
CPT/HCPCS: 36415; 74177; 80048; 81001; 85025; 86140; 96360; 99284; 99285; J7030; Q9967

== ENCOUNTER 2025-01-01 08:20 | Outpatient (CLI) | payer OTHER, SELFPAY | END 2025-01-01 08:21 | disposition home or self-care (01) | LOC: NFLDREF 01-04 04:33 | PROVIDERS: PCP Physician Assistant Medical; Referring Provider Physician Assistant Medical; Visit Provider Physician Assistant Medical | DX: Z00.00 Encounter for general adult medical examination without abnormal findings (principal); R79.82 Elevated C-reactive protein (CRP); N95.1 Menopausal and female climacteric states | CPT/HCPCS: 80053; 80061; 82306; 84439; 84443; 86140 ==